=== PATIENT | female | born 1960 | race African-American/Black ===

== ENCOUNTER 2016-09-09 08:10 | Emergency (ER) | payer MEDICAID ==
[~2016-09-09] VITALS: Ht 160 cm; Wt 93.4 kg
[2016-09-09] MEDS ORDERED: ATENOLOL25 MG ORAL (08:28)
[2016-09-09] MEDS ORDERED: DILTIAZEM 24HR120 M1 ORAL (08:28)
[2016-09-09] MEDS ORDERED: HYDRALAZINE HCL50 MG ORAL (08:28)
[2016-09-09] MEDS ORDERED: ISOSORBIDE MONO60 M1 PO (08:28)
[2016-09-09] MEDS ORDERED: B COMPLEX WITH1 EACH ORAL (08:29)
[2016-09-09] MEDS ORDERED: OYSCO 500+D TA1 EAC1 PO (08:29)
[2016-09-09 09:06] LABS: BASOPHILS % (AUTO) 0.9 % (0.0-2.0); EOSINOPHILS % (AUTO) 1.8 % (0.0-3.0); MEAN CORPUSCULAR HEMOGLOBIN 25.9 PG (27.0-31.0); MEAN CORPUSCULAR HGB CONC 30.2 G/DL (32.0-36.0); MEAN CORPUSCULAR VOLUME 86 FL (80-99); MEAN PLATELET VOLUME 8.1 FL (6.5-10.1); MONOCYTES % (AUTO) 8.3 % (1.0-10.0); PLATELET COUNT 332 K/UL (150-450); RED BLOOD COUNT 4.99 M/UL (4.20-5.40); RED CELL DISTRIBUTION WIDTH 15.1 % (11.6-14.8); WHITE BLOOD COUNT 10.1 K/UL (4.8-10.8)
[2016-09-09 09:13] VITALS: BP 172/99
[2016-09-09 09:17] LABS: APPEARANCE,URINE CLEAR; KETONES,URINE NEGATIVE (NEGATIVE); LEUKOCYTE ESTERASE ,URINE 1+ (NEGATIVE); NITRITE,URINE NEGATIVE (NEGATIVE); PH,URINE 7 (4.5-8.0); PROTEIN,URINE 2+ (NEGATIVE); UROBILINOGEN,URINE NORMAL MG/DL (0.0-1.0)
[2016-09-09 09:22] LABS: TROPONIN I < 0.30 ng/mL (<=0.30)
[2016-09-09 09:23] LABS: ALBUMIN/GLOBULIN RATIO 0.8 (1.0-2.7); CALCIUM 9.3 mg/dL (8.6-10.2); CREATININE 1.3 mg/dL (0.5-0.9); GLOMERULAR FILTRATION RATE 51.4 mL/min (>60); POTASSIUM 4.5 mEQ/L (3.4-4.9); TOTAL PROTEIN 7.3 g/dL (6.6-8.7)
[2016-09-09 09:35] LABS: BACTERIA,URINE FEW /HPF; SQUAMOUS EPITHELIAL CELL,UR FEW /LPF (NONE/OCC)
[2016-09-09 09:36] LABS: PROTHROMBIN TIME 9.9 SEC (9.30-11.50)
[2016-09-09 10:25] VITALS: BP 162/109
[2016-09-09] MEDS ORDERED: Lidocaine 2% Visc 15ml soln ORAL ONE (10:30)
--- NOTE | 2016-09-09 11:33 | Emergency Room Report ---
History of Present Illness General Chief Complaint: Abdominal Pain Source: Patient Present Illness HPI This patient complains of upper abdominal pain for the past 3 days. She also has had nausea, vomiting and diarrhea that she relates to fried chicken that she ate yesterday. She's also had cough and congestion. She denies fever chills. She denies nausea or vomiting. She denies chest pain. She denies shortness of breath. She has no other complaints. Allergies: Coded Allergies: No Known Allergies (Unverified , 09/09/16) Patient History Past Medical History: see triage record, HTN, asthma Social History: Denies: alcohol use, drug use, smoking Now: No Reviewed Nursing Documentation: PMH: Agreed, PSxH: Agreed Nursing Documentation-PMH Hx Hypertension: Yes Hx Asthma: Yes Review of Systems All Other Systems: negative except mentioned in HPI Physical Exam Vital Signs Date Time Temp Pulse Resp B/P Pulse Ox O2 Delivery O2 Flow Rate FiO2 09/09/16 08:16 99.1 86 18 170/102 94 Room Air Sp02 EP Interpretation: reviewed, normal General Appearance: no apparent distress, alert, GCS 15, non-toxic, other - I had to wake this patient from sleeping to get an examination and history. Head: normocephalic, atraumatic Eyes: bilateral eye PERRL, bilateral eye normal inspection ENT: hearing grossly normal, normal pharynx, no angioedema, normal voice Neck: full range of motion, supple/symm/no masses Respiratory: chest non-tender, no respiratory distress, no retraction, no accessory muscle use, rhonchi, speaking full sentences Cardiovascular #1: regular rate, rhythm, no edema Gastrointestinal: normal bowel sounds, soft, non-distended, no guarding, no rebound, tenderness - TTP upper abdomen Rectal: deferred Musculoskeletal: back normal, gait/station normal, normal range of motion, non- tender Neurologic: alert, oriented x3, responsive, motor strength/tone normal, sensory intact, speech normal Psychiatric: judgement/insight normal, memory normal, mood/affect normal, no suicidal/homicidal ideation Skin: normal color, no rash, warm/dry, well hydrated Medical Decision Making Diagnostic Impression: Primary Impression: Pneumonia Additional Impression: Gastroenteritis ER Course This patient presented with abdominal pain, nausea, vomiting and diarrhea. The patient was tender in the abdomen on physical exam, so I did obtain a CT of the abdomen and pelvis. Incidentally the patient was found to have consolidation in the left lower lung on a CT. Therefore, I obtained a chest x-ray. This also showed an opacity in the right middle lobe. I did give the patient IV Rocephin. He was no significant findings on the CT abdomen and pelvis. Likely this is related to gastroenteritis. I did offer the patient admission to the hospital. However, she states that she would rather go home with oral antibiotics. The patient is given close return precautions and followup instructions. Labs Test 09/09/16 08:35 09/09/16 08:56 Urine Color Pale yellow Urine Appearance Clear Urine pH 7 (4.5-8.0) Urine Specific [place] 1.005 (1.005-1.035) Urine Protein 2+ (NEGATIVE) Urine Glucose (UA) Negative (NEGATIVE) Urine Ketones Negative (NEGATIVE) Urine Occult Blood 1+ (NEGATIVE) Urine Nitrite Negative (NEGATIVE) Urine Bilirubin Negative (NEGATIVE) Urine Urobilinogen Normal MG/DL (0.0-1.0) Urine Leukocyte Esterase 1+ (NEGATIVE) Urine RBC 2-4 /HPF (0 - 2) Urine WBC 2-4 /HPF (0 - 2) Urine Squamous Epithelial Cells Few /LPF (NONE/OCC) Urine Bacteria Few /HPF (NONE) White Blood Count 10.1 K/UL (4.8-10.8) Red Blood Count 4.99 M/UL (4.20-5.40) Hemoglobin 12.9 G/DL (12.0-16.0) Hematocrit 42.8 % (37.0-47.0) Mean Corpuscular Volume 86 FL (80-99) Mean Corpuscular Hemoglobin 25.9 PG (27.0-31.0) Mean Corpuscular Hemoglobin Concent 30.2 G/DL (32.0-36.0) Red Cell Distribution Width 15.1 % (11.6-14.8) Platelet Count 332 K/UL (150-450) Mean Platelet Volume 8.1 FL (6.5-10.1) Neutrophils (%) (Auto) 75.0 % (45.0-75.0) Lymphocytes (%) (Auto) 14.0 % (20.0-45.0) Monocytes (%) (Auto) 8.3 % (1.0-10.0) Eosinophils (%) (Auto) 1.8 % (0.0-3.0) Basophils (%) (Auto) 0.9 % (0.0-2.0) Prothrombin Time 9.9 SEC (9.30-11.50) Prothromb Time International Ratio 1.0 (0.9-1.1) Activated Partial Thromboplast Time 32 SEC (23-33) Sodium Level 137 mEQ/L (135-145) Potassium Level 4.5 mEQ/L (3.4-4.9) Chloride Level 98 mEQ/L (98-107) Carbon Dioxide Level 27 mEQ/L (20-30) Anion Gap 12 (5-15) Blood Urea Nitrogen 13 mg/dL (7-23) Creatinine 1.3 mg/dL (0.5-0.9) Estimat Glomerular Filtration Rate 51.4 mL/min (>60) Glucose Level 108 mg/dL (74-106) Calcium Level 9.3 mg/dL (8.6-10.2) Total Bilirubin 0.5 mg/dL (0.0-1.2) Aspartate Amino Transf (AST/SGOT) 36 U/L (5-40) Alanine Aminotransferase (ALT/SGPT) 28 U/L (3-33) Alkaline Phosphatase 99 U/L (35-104) Troponin I < 0.30 ng/mL (<=0.30) Total Protein 7.3 g/dL (6.6-8.7) Albumin 3.4 g/dL (3.5-5.2) Globulin 3.9 g/dL Albumin/Globulin Ratio 0.8 (1.0-2.7) Lipase 27 U/L (< 60) EKG Diagnostic Results Rate: normal Rhythm: NSR ST Segments: no acute changes Rhythm Strip Diag. Results EP Interpretation: yes Rate: 80's Rhythm: NSR, no PVC's, no ectopy Chest X-Ray Diagnostic Results EP Interpretation: Yes Findings: no effusion, no pneumothorax Number of Views: 1 Other Impression Right middle lobe opacity. Left lower lobe opacity. CT/MRI/US Diagnostic Results CT/MRI/US Diagnostic Results : Imaging Test Ordered: CT abd/pelvis Impression Impression: Dense consolidation in the left lower lobe, concerning for pneumonia Nonspecific slight prominence of left upper quadrant jejunal loops, of doubtful significance. No other acute abdominal or pelvic process demonstrated Incidental findings as noted, including bilateral basilar pulmonary parenchymal atelectatic changes, degenerative spondylosis, probable vaginal wall Maxim's duct cyst, left renal cyst, left lobe hepatic cyst Last Vital Signs Date Time Temp Pulse Resp B/P Pulse Ox O2 Delivery O2 Flow Rate FiO2 09/09/16 10:25 90 22 162/109 92 Room Air 09/09/16 08:16 99.1 Disposition: HOME, SELF-CARE Condition: Stable Referrals: ZHANNA OSCAR,REFERRING (PCP) CARLIN NUÑEZ D.O. Sep 09, 2016 11:33
--- NOTE | 2016-09-09 11:33 | Diagnostic Imaging Report ---
Clinical Indication: Abdominal pain Technique: No oral contrast utilized, per emergency room physician request IV administration nonionic contrast. Venous phase spiral acquisition obtained through the abdomen and pelvis. Multiplanar reconstructions were generated. Total dose length product 1022 mGycm. CTDIvol(s) 19 mGy Comparison: None Findings: The appendix is normal. There is no evidence of diverticulosis or diverticulitis. There is mild prominence of proximal jejunal loops in the left upper quadrant but no generalized small bowel distention is demonstrated. No free or loculated intraperitoneal air or fluid is evident. The distal esophagus, stomach, and duodenum are unremarkable. The liver demonstrates a cyst within segment 2. It is otherwise unremarkable. The gallbladder is nondistended, grossly unremarkable. No biliary ductal dilatation. The pancreas, spleen, adrenals, right kidney are unremarkable. The left kidney demonstrates a cyst in the lower pole. No retroperitoneal or mesenteric mass or adenopathy. No pelvic mass or adenopathy. Uterus and ovaries are unremarkable. There is probably a Maxim's duct cyst in the vaginal wall The lung bases demonstrate an area of dense consolidation and atelectasis in the superior posterior medial left lower lobe, as well as bilateral basilar linear atelectatic changes. The bones demonstrate degenerative spondylosis changes. Impression: Dense consolidation in the left lower lobe, concerning for pneumonia Nonspecific slight prominence of left upper quadrant jejunal loops, of doubtful significance. No other acute abdominal or pelvic process demonstrated Incidental findings as noted, including bilateral basilar pulmonary parenchymal atelectatic changes, degenerative spondylosis, probable vaginal wall Maxim's duct cyst, left renal cyst, left lobe hepatic cyst The CT scanner at [facility] is accredited by the [employer] and the scans are performed using protocols designed to limit radiation exposure to as low as reasonably achievable to attain images of sufficient resolution adequate for diagnostic evaluation.
[2016-09-09] MEDS ORDERED: cefTRIAXone 1 GM in NS 55 ML IVPB ONE (12:00)
[2016-09-09 12:19] VITALS: BP 152/100
[2016-09-09] MEDS ORDERED: NS 55 ML IV ONE (12:24)
[2016-09-09] MEDS ORDERED: ZITHROMAX250 MG ORAL (14:13)
[2016-09-09] MEDS ORDERED: ZOFRAN ODT4 MG ORAL (14:13)
[2016-09-09 15:20] VITALS: BP 146/88
--- NOTE | 2016-09-09 16:47 | Diagnostic Imaging Report ---
Indication: Cough Technique: One view of the chest Comparison: none Findings: Focal infiltrate is seen in the right perihilar region. Underlying mass lesion not excludable. The remainder lungs and pleural spaces are clear. Heart size is upper limits normal. Aorta is somewhat ectatic. Impression: Right perihilar infiltrate. Recommend followup to resolution to exclude underlying mass Other findings as noted
--- NOTE | 2016-09-11 14:05 | Cardiology Report ---
APPROVED REPORT EKG Measurement Heart [id number] Normal sinus rhythm T wave abnormality, consider lateral ischemia Abnormal ECG
== END 2016-09-09 15:20 | disposition home or self-care (01) ==
LOC: EMR 08:57
DX: K52.9 Noninfective gastroenteritis and colitis, unspecified (principal); J18.9 Pneumonia, unspecified organism; I10 Essential (primary) hypertension; J45.909 Unspecified asthma, uncomplicated; N28.1 Cyst of kidney, acquired; K76.89 Other specified diseases of liver; M47.9 Spondylosis, unspecified
CPT/HCPCS: 36415; 71010; 74177; 80053; 81003; 83690; 84484; 85025; 85610; 85730; 93005; 96360; 96374; 96375; 99284; J0696; J2405; J7040; Q9967

== ENCOUNTER 2016-11-09 23:25 | Emergency (ER) | payer MEDICAID ==
[~2016-11-09] VITALS: Ht 160 cm; Wt 81.6 kg
[~2016-11-09 23:25] MED LIST: ATENOLOL25 MG ORAL; B COMPLEX WITH1 EACH ORAL; DILTIAZEM 24HR120 M1 ORAL; HYDRALAZINE HCL50 MG ORAL; ISOSORBIDE MONO60 M1 PO; OYSCO 500+D TA1 EAC1 PO; ZITHROMAX250 MG ORAL; ZOFRAN ODT4 MG ORAL
[2016-11-09] MEDS ORDERED: HYDROmorphone 1mg/ml Carpuject IVP ONE (23:45)
[2016-11-10] VITALS: BP 166/120
[2016-11-10 00:25] VITALS: BP 133/112
[2016-11-10 00:41] LABS: BASOPHILS % (AUTO) 0.3 % (0.0-2.0); EOSINOPHILS % (AUTO) 1.6 % (0.0-3.0); LYMPHOCYTES % (AUTO) 8.5 % (20.0-45.0); MEAN CORPUSCULAR HEMOGLOBIN 26.1 PG (27.0-31.0); MEAN CORPUSCULAR HGB CONC 30.9 G/DL (32.0-36.0); MEAN CORPUSCULAR VOLUME 84 FL (80-99); MEAN PLATELET VOLUME 7.8 FL (6.5-10.1); MONOCYTES % (AUTO) 5.5 % (1.0-10.0); NEUTROPHILS % (AUTO) 84.1 % (45.0-75.0); PLATELET COUNT 282 K/UL (150-450); RED BLOOD COUNT 6.07 M/UL (4.20-5.40); RED CELL DISTRIBUTION WIDTH 16.2 % (11.6-14.8); WHITE BLOOD COUNT 9.5 K/UL (4.8-10.8)
[2016-11-10 00:59] LABS: ALANINE AMINOTRANSFERASE 28 U/L (3-33); ALBUMIN/GLOBULIN RATIO 0.9 (1.0-2.7); ANION GAP 15 (5-15); ASPARTATE AMINO TRANSFERASE 38 U/L (5-40); CALCIUM 9.2 mg/dL (8.6-10.2); CARBON DIOXIDE 26 mEQ/L (20-30); CHLORIDE 100 mEQ/L (98-107); CREATININE 1.1 mg/dL (0.5-0.9); GLOMERULAR FILTRATION RATE > 60 mL/min (>60); HEMOLYSIS 67; LIPASE 47 U/L (< 60); POTASSIUM 4.4 mEQ/L (3.4-4.9); SODIUM 141 mEQ/L (135-145)
[2016-11-10] MEDS ORDERED: ZOFRAN4 MG ORAL (02:17)
[2016-11-10] MEDS ORDERED: HYDROCODON-ACE1 EA15 ORAL (02:17)
--- NOTE | 2016-11-10 02:18 | Emergency Room Report ---
History of Present Illness General Chief Complaint: Back Pain-No Injury Source: Patient Present Illness HPI Is a 56-year-old female with history hypertension. She is normally on for high blood pressure medication. She has not taking them today because she has vomiting and diarrhea. Present with chief complaint of severe abdominal pain. 10 out of 10. Social with vomiting and diarrhea. Vomiting is nonbloody and nonbilious. Diarrhea is watery. Denies any chest pain. Never had this problem before. Pain radiates to her back. Allergies: Coded Allergies: No Known Allergies (Unverified , 11/09/16) Patient History Past Medical History: see triage record, old chart reviewed, HTN Past Surgical History: other Pertinent Family History: none Social History: Denies: smoking Last Menstrual Period: n/a Now: No Immunizations: other Reviewed Nursing Documentation: PMH: Agreed, PSxH: Agreed Nursing Documentation-PMH Past Medical History: No History, Except For Hx Hypertension: Yes Hx Asthma: Yes Review of Systems Eye: Denies: blurred vision, eye pain ENT: Denies: ear pain, nose congestion, throat swelling Respiratory: Denies: cough, shortness of breath Cardiovascular: Denies: chest pain, palpitations Gastrointestinal: Reports: abdominal pain, diarrhea, nausea, vomiting Musculoskeletal: Reports: back pain, Denies: joint pain Skin: Denies: rash Neurological: Denies: headache, numbness Endocrine: Denies: increased thirst, increased urine Hematologic/Lymphatic: Denies: easy bruising All Other Systems: negative except mentioned in HPI Physical Exam Vital Signs Date Time Temp Pulse Resp B/P Pulse Ox O2 Delivery O2 Flow Rate FiO2 11/09/16 23:29 88 16 215/108 96 Room Air 11/10/16 00:25 2.0 Vitals with hypertension Sp02 EP Interpretation: reviewed, normal General Appearance: well appearing, alert, moderate distress - From pain Head: normocephalic, atraumatic Eyes: bilateral eye EOMI, bilateral eye PERRL ENT: hearing grossly normal, normal pharynx Neck: full range of motion, supple, no meningismus Respiratory: chest non-tender, lungs clear, normal breath sounds Cardiovascular #1: regular rate, rhythm, no murmur Gastrointestinal: normal bowel sounds, no mass, no organomegaly, no bruit, non- distended, tenderness - diffuse, decreased bowel sounds Musculoskeletal: back normal, gait/station normal, normal range of motion Neurologic: alert, oriented x3 Psychiatric: anxious Skin: warm/dry Medical Decision Making Diagnostic Impression: Primary Impression: Abdominal pain Qualified Codes: R10.84 - Generalized abdominal pain Additional Impressions: Nausea, vomiting and diarrhea Cocaine abuse Accelerated essential hypertension ER Course Is present with abdominal pain with vomiting and diarrhea. Most likely acute gastroenteritis. Pain probably from cramping and gas. No evidence of obstruction. No evidence of acute abdomen. CT scan unremarkable. Laboratory Tests Test 11/09/16 23:43 11/10/16 00:25 Urine Color Pending Urine Appearance Pending Urine pH Pending Urine Specific [place] Pending Urine Protein Pending Urine Glucose (UA) Pending Urine Ketones Pending Urine Occult Blood Pending Urine Nitrite Pending Urine Bilirubin Pending Urine Urobilinogen Pending Urine Leukocyte Esterase Pending Urine Opiates Screen Negative (NEGATIVE) Urine Barbiturates Screen Negative (NEGATIVE) Phencyclidine (PCP) Screen Negative (NEGATIVE) Urine Amphetamines Screen Negative (NEGATIVE) Urine Benzodiazepines Screen Negative (NEGATIVE) Urine Cocaine Screen Positive (NEGATIVE) H Urine Marijuana (THC) Screen Negative (NEGATIVE) White Blood Count 9.5 K/UL (4.8-10.8) Red Blood Count 6.07 M/UL (4.20-5.40) H Hemoglobin 15.8 G/DL (12.0-16.0) Hematocrit 51.2 % (37.0-47.0) H Mean Corpuscular Volume 84 FL (80-99) Mean Corpuscular Hemoglobin 26.1 PG (27.0-31.0) L Mean Corpuscular Hemoglobin Concent 30.9 G/DL (32.0-36.0) L Red Cell Distribution Width 16.2 % (11.6-14.8) H Platelet Count 282 K/UL (150-450) Mean Platelet Volume 7.8 FL (6.5-10.1) Neutrophils (%) (Auto) 84.1 % (45.0-75.0) H Lymphocytes (%) (Auto) 8.5 % (20.0-45.0) L Monocytes (%) (Auto) 5.5 % (1.0-10.0) Eosinophils (%) (Auto) 1.6 % (0.0-3.0) Basophils (%) (Auto) 0.3 % (0.0-2.0) Sodium Level 141 mEQ/L (135-145) Potassium Level 4.4 mEQ/L (3.4-4.9) Chloride Level 100 mEQ/L (98-107) Carbon Dioxide Level 26 mEQ/L (20-30) Anion Gap 15 (5-15) Blood Urea Nitrogen 19 mg/dL (7-23) Creatinine 1.1 mg/dL (0.5-0.9) H Estimat Glomerular Filtration Rate > 60 mL/min (>60) Glucose Level 142 mg/dL (74-106) H Calcium Level 9.2 mg/dL (8.6-10.2) Total Bilirubin 0.3 mg/dL (0.0-1.2) Aspartate Amino Transf (AST/SGOT) 38 U/L (5-40) Alanine Aminotransferase (ALT/SGPT) 28 U/L (3-33) Alkaline Phosphatase 117 U/L (35-104) H Total Protein 8.0 g/dL (6.6-8.7) Albumin 3.9 g/dL (3.5-5.2) Globulin 4.1 g/dL Albumin/Globulin Ratio 0.9 (1.0-2.7) L Lipase 47 U/L (< 60) Lab Results Impression labs unremarkable CT/MRI/US Diagnostic Results CT/MRI/US Diagnostic Results : Imaging Test Ordered: CT abdomen and pelvis Impression read by radiologist. Appendix is unremarkable. Fluid in the bowel which may correlate to diarrhea. No obstruction. Last Vital Signs Date Time Temp Pulse Resp B/P Pulse Ox O2 Delivery O2 Flow Rate FiO2 11/10/16 01:58 172/120 11/10/16 00:25 89 15 97 Nasal Cannula 2.0 Status: improved Disposition: HOME, SELF-CARE Condition: Stable Scripts Ondansetron (Zofran) 4 Mg Tablet 4 MG ORAL Q6H Y for Nausea & Vomiting, #10 TAB 0 Refills Prov: FARAZ FLOOD M.D. 11/10/16 Hydrocodone/Acetaminophen 5-325* (HYDROCODONE/ACETAMINOPHEN 5-325*) 1 Each Tablet 1 TAB ORAL Q6H Y for For Pain, #10 TAB 0 Refills Prov: FARAZ FLOOD M.D. 11/10/16 Referrals: [facility],REFERRING (PCP) Additional Instructions: Followup with your Dr. in 2-3 days. Abstain from drugs. take your blood pressure medication.Return if symptom worsen. FARAZ FLOOD M.D. November 10, 2016 02:18
[2016-11-10 02:19] VITALS: BP 156/93
[2016-11-10 02:38] VITALS: BP 156/93
--- NOTE | 2016-11-10 11:07 | Diagnostic Imaging Report ---
Indication: Abdominal pain Technique: Continuous helical transaxial imaging of the abdomen and pelvis was obtained from the lung bases to the pubic symphysis during intravenous contrast administration. Coronal 2-D reformats were also obtained. Study obtained in a Siemens sensation [address] Total Dose length Product (DLP): [address] Dose Index Volume (CTDIvol): 20 mGy Comparison: 09/09/16 Findings: There is mild posterior basilar atelectasis demonstrated. There is a cyst in the anterior dome of the left lobe of the liver. Small hiatal hernia is present. The left kidney is malrotated. There is a cyst in the lower pole of the left kidney again noted. There is no hydronephrosis. Gallbladder is unremarkable. Pancreas is unremarkable. Mild desiccation of the aorta noted. Spleen appears normal. This normal appendix demonstrated. Uterus and urinary bladder are unremarkable. Most of the small bowel loops are fluid-filled and there is questionable minimal distention of some of the small bowel loops. There is no evidence of obstruction. The findings could represent a mild enteritis. Please correlate clinically. There is narrowing of intervertebral discs and accompanying endplate osteophyte formation. Hypertrophied facet joints also demonstrated. Vacuum phenomena and degenerative changes at L5-S1. Impression: Possible mild enteritis. Please correlate clinically. Normal appendix Mild atherosclerotic vascular disease Small hiatal hernia Liver cyst Left renal cyst. Malrotated left kidney Degenerative changes of lower lumbar spine The CT scanner at [facility] is accredited by the [employer] and the scans are performed using dose optimization techniques as appropriate to a performed exam including Automatic Exposure control.
== END 2016-11-10 02:40 | disposition home or self-care (01) ==
LOC: EMR 23:45
DX: R10.84 Generalized abdominal pain (principal); R11.10 Vomiting, unspecified; R19.7 Diarrhea, unspecified; F14.10 Cocaine abuse, uncomplicated; I10 Essential (primary) hypertension; J45.909 Unspecified asthma, uncomplicated; R11.2 Nausea with vomiting, unspecified
CPT/HCPCS: 36415; 74177; 80053; 80300; 83690; 85025; 96360; 96361; 96374; 96375; 99284; J0360; J1170; J2405; Q9967; 81003